=== PATIENT | female | born 1950 | race Caucasian/White ===

== ENCOUNTER 2021-10-19 12:44 | Outpatient (CLI) | payer MEDICARE, OTHER, SELFPAY ==
--- NOTE | 2021-10-19 | ECHO_ITS ---
Patient Info Name: Nilam Abarca Age: 71 years : 1950 Gender: Female Ht: 66 in Wt: 238 lbs BSA: 2.29 m2 HR: 64 bpm BP: 141 / 85 mmHg Heart Rhythm: Sinus Rhythm Technical Quality: Fair Exam Date: 10/19/2021 1:23 PM Exam Location: [facility] Pul[facility] Patient Status: Outpatient Admit Date: 10/19/2021 Staff Ordering Physician: Silviano, Eugenie DALTON [employer] System Installer: Julia Polk RDCS Attending Provider: Silviano, Eugenie DALTON Exam Type: CA echo doppler color flow Study Info Indications R94.31 - Abnormal electrocardiogram ECG EKG Complete two-dimensional, color flow and Doppler transthoracic echocardiogram is performed. Summary 1. Complete two-dimensional, color flow and Doppler transthoracic echocardiogram is performed. 2. Mild left ventricular enlargement with moderate concentric hypertrophy. Good systolic function of all segments with ejection fraction of 63%. Global longitudinal strain is mildly diminished at -15% consistent with a degree of systolic dysfunction. Grade 1 diastolic dysfunction is present. 3. Left atrial chamber dimension is moderately enlarged. 4. No pulmonary hypertension, estimated pulmonary arterial systolic pressure is 30 mmHg. 5. Mild aortic calcification and mild aortic stenosis with a mean gradient of 13 mm Hg and a valve area 1.8 cm2. 6. Mildly calcified aortic root. 7. Normal sinus rhythm. Left Ventricle Left ventricular chamber dimension is mildly enlarged. Left ventricular systolic function is normal, estimated at 60-65%. There is moderately increased left ventricular wall thickness. Left ventricular septal wall motion is normal. The left ventricular diastolic function is grade I diastolic dysfunction. Global longitudinal strain is mildly elevated at -15 %. Right Ventricle Right ventricular chamber dimension is normal. Right ventricular systolic function is normal. Left Atria Left atrial chamber dimension is moderately enlarged. Right Atria Right atrial chamber dimension is normal. Aortic Valve The aortic valve is trileaflet. There is no aortic valve sclerosis. There is mild aortic valve stenosis. There is no aortic valve regurgitation. There is mild aortic valve calcification. Pulmonic Valve The pulmonic valve is normal. There is no pulmonic valve stenosis. There is trace pulmonic regurgitation. Mitral Valve The mitral valve has normal leaflets. There is no mitral valve stenosis. There is trace mitral valve regurgitation. Tricuspid Valve The tricuspid valve leaflets are normal. There is no significant tricuspid valve stenosis. There is trace tricuspid valve regurgitation. No pulmonary hypertension, estimated pulmonary arterial systolic pressure is 30 mmHg. Pericardium/Pleural The pericardium appears normal. There is no pericardial effusion. Inferior Vena Cava Normal inferior vena cava with >50% collapse upon inspiration consistent with Empty right atrial pressure, 10 mmHg. Aorta The aortic root size at the sinus of Valsalva is normal. The prox ascending aorta size is normal. There is mild aortic atherosclerosis. Left Ventricular Outflow Tract Name Value Normal LVOT 2D LVOT Diameter 2.0 cm LVOT D
== END 2021-10-19 12:45 | disposition home or self-care (01) ==
LOC: ANHCARD 12:51
PROVIDERS: PCP Nurse Practitioner Family; Visit Provider Nurse Practitioner Family
DX: R94.31 Abnormal electrocardiogram [ECG] [EKG] (principal); I51.7 Cardiomegaly
CPT/HCPCS: 93306

== ENCOUNTER → 2022-09-06 07:00 | Outpatient (CLI) | payer MEDICARE, SELFPAY ==
--- NOTE | ~2022-09-06 | MR_ITS ---
MRI of the left ankle Clinical history: Posterior tibial tendinitis Technique: Coronal proton-density and proton-density fat-sat images, axial proton-density and proton- density fat-sat images, and sagittal proton-density and proton-density fat-sat images were acquired. Findings: Syndesmotic ligaments are intact. Anterior and posterior talofibular ligaments, and calcane ofibular ligament are intact. Deltoid ligament is intact. There is complete rupture of the distal tibialis posterior tendon. The retracted tendon is thickened and hyperintense, consistent with hypertrophic tear. Flexor hallucis longus and flexor digitorum long us tendons are intact. Anterior extensor tendons are intact. There is minimal Achilles tendinosis, wi th enthesopathic change at the Achilles tendon insertion. There is no osteochondral lesion of the talar dome. There is a benign-appearing lesion in the distal fibula, possibly chondroid in nature, with narrow zone of transition and no perilesional edema or per iosteal reaction. There is benign cystic change in the calcaneal body. There is mild degenerative ebony nge at the second tarsometatarsal joint. Plantar fascia is mildly thickened and hyperintense at its plantar origin, with calcaneal plantar spu r present. There is mild fluid distention of the retrocalcaneal bursa. There is mild edema like signa l within the sinus Tarsi. Impression: Complete rupture of the distal tibialis posterior tendon. Minimal Achilles tendinosis with enthesopathic change at the Achilles tendon insertion. Probable mild plantar fasciitis with calcaneal plantar spur. Mild retrocalcaneal bursitis. Benign appearing intramedullary osseous lesion of the distal fibula, as detailed above. Reviewed, dictated and finalized at [facility]. Impression: Complete rupture of the distal tibialis posterior tendon. Minimal Achilles tendinosis with enthesopathic change at the Achilles tendon in sertion. Probable mild plantar fasciitis with calcaneal plantar spur. Mild retrocalcaneal bursitis. Benign appearing intramedullary osseous lesion of the distal fibula, as detaile d above.
== END ==
PROVIDERS: PCP Nurse Practitioner Family; Visit Provider Podiatrist Foot & Ankle Surgery
DX: M76.822 Posterior tibial tendinitis, left leg (principal); S86.812A Strain of other muscle(s) and tendon(s) at lower leg level, left leg, initial encounter; M77.52 Other enthesopathy of left foot and ankle; M89.9 Disorder of bone, unspecified
CPT/HCPCS: 73721